=== PATIENT | male | born 2000 | race Caucasian/White ===

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

== ENCOUNTER 2021-07-18 16:29 | Emergency (ER) | payer SELFPAY ==
--- NOTE | 2021-07-18 16:39 | ED.EYEPROB ---
HPI - Eye Problem General Chief complaint: Eye Problems Stated complaint: Eye Swelling/Red Time Seen by Provider: 07/18/21 16:39 Source: patient and RN notes reviewed History of Present Illness HPI Narrative: Patient is a 21-year-old male who presents the urgent care with complaints of right eye redness and irritation. Patient states that started 1 week ago and he has been using [id number] drops without much improvement. Denies of any vision change. Denies of any trauma or injury to the eye. No other acute complaints. No acute distress noted. Patient aware of the plan of care. Some parts of this dictation were generated by voice recognition software and may contain typographical and/or grammatical inaccuracies. Related Data Allergies Allergy/AdvReac Type Severity Reaction Status Date / Time cephalexin AdvReac Intermediate Nausea and Verified 11/18/20 10:34 Vomiting Review of Systems Review of Systems: CONSTITUTIONAL: Denies fever, chills, or sweats. EYES: Reports of redness and irritation to the right eye ENT: Denies rhinorrhea, congestion, sore throat, or otalgia. CARDIOVASCULAR: Denies chest pain, palpitations, or edema. RESPIRATORY: Denies cough or dyspnea. GASTROINTESTINAL: Denies abdominal pain, nausea, vomiting, or diarrhea. GENITOURINARY: Denies dysuria or hematuria. SKIN: Denies rash or itching. MUSCULOSKELETAL: Denies back pain, joint pain, or myalgia. NEUROLOGIC: Denies headache, numbness, or weakness. All other systems reviewed are negative, except as documented in HPI. PMFSH Comments At the time of my signature, I reviewed and agree with the nursing past medical, surgical, social, and family history. There is no relevant family history pertinent to the patient complaint. Exam Narrative: GENERAL: This is a well-nourished, well-developed patient, in no apparent distress. HEAD: normocephalic, atraumatic. EYES: PERRL. left Sclera clear/white. Vision is grossly intact. Moderate injected right conjunctiva with erythemic right sclera EARS: External ears normal, auditory canals clear and without drainage, TMs normal without perforation. Hearing grossly intact. NOSE: External nose normal with no obvious nasal discharge, nares without redness, no rhinorrhea. THROAT: Mucous membranes moist, posterior pharynx clear. NECK: Neck supple, mild right parotid lymphadenopathy CARDIOVASCULAR: Regular rate and rhythm without murmurs, gallops, or rubs. RESPIRATORY: Clear to auscultation. Breath sounds equal bilaterally. No wheezes, rales, or rhonchi. SKIN: warm, intact with no suspicious lesions or rash, good texture and turgor. NEURO: awake, alert, and oriented to person, place and time. There were no obvious focal neurologic abnormalities. EXTREMITIES: No clubbing, cyanosis, or edema. Course Vital Signs Vital signs: Vital Signs Temperature 98.0 F 07/18/21 16:44 Pulse Rate 62 07/18/21 16:44 Respiratory Rate 18 07/18/21 16:44 Blood Pressure 137/97 H 07/18/21 16:44 Pulse Oximetry 100 07/18/21 16:44 Temperature 98.0 F 07/18/21 16:44 Pulse Rate 62 07/18/21 16:44 Respiratory Rate 18 07/18/21 16:44 Blood Pressure 137/97 H 07/18/21 16:44 Pulse Oximetry 100 07/18/21 16:44 Reviewed?patient is informed that they may have pre-hypertension or hypertension based on a blood pressure reading in the department. I recommend the patient call the primary care provider listed on their discharge instructions or a physician of their choice this week to arrange follow-up for further evaluation of possible pre-hypertension or hypertension. MDM - Eye Problem MDM Narrative Medical decision making narrative: Advised the patient to take a daily antihistamine such as Zyrtec/Claritin/Benadryl in conjunction with the eyedrops as directed. Make sure to wipe the applicator tip after each application. Use Tylenol/ibuprofen as needed. Use a warm compress to the right eye for comfort. Follow-up with your PCP/ophthal
[2021-07-18 16:44] VITALS: BP 137/97; PULSE 62; RESP 18; TEMP 36.7; O2SAT 100
== END 2021-07-18 16:55 | disposition home or self-care (01) ==
PROVIDERS: Emergency Provider Nurse Practitioner Family
DX: H10.9 Unspecified conjunctivitis (principal)
CPT/HCPCS: 99213; G0463

== ENCOUNTER 2021-08-16 12:22 | Emergency (ER) | payer SELFPAY ==
[2021-08-16 12:49] VITALS: BP 114/70; PULSE 86; RESP 14; TEMP 37.1; O2SAT 100
--- NOTE | 2021-08-16 14:32 | ED.DENTAL ---
HPI - Dental/Oral General Chief complaint: Dental/Oral Stated complaint: Facial Swelling/Toothache Time Seen by Provider: 08/16/21 14:32 Mode of arrival: ambulatory Limitations: no limitations History of Present Illness MD Complaint: tooth pain Related Data Home Medications Medication Instructions Recorded Confirmed No Home Medications 08/16/21 08/16/21 Allergies Allergy/AdvReac Type Severity Reaction Status Date / Time cephalexin AdvReac Intermediate Nausea and Verified 08/16/21 12:57 Vomiting Review of Systems Review of Systems: CONSTITUTIONAL: Denies malaise, chills, sweats, or fever. EYES: Denies visual changes ENT: Denies rhinorrhea, congestion, sinus pain, otalgia or sore throat. Reports dental pain CARDIOVASCULAR: Denies chest pain, palpitations RESPIRATORY: Denies cough or dyspnea. SKIN: Denies rash or itching. MUSCULOSKELETAL: Denies myalgia. NEUROLOGIC: Denies numbness, weakness, or headache. All systems reviewed & are unremarkable except as noted in HPI and below PMFSH Comments At time of signature, agree with nursing past medical, surgical, social and family history. There is no relevant family history pertinent to the presenting complaint Exam Narrative: GENERAL: Well-appearing, well-nourished, and in no acute distress. HEAD: Normocephalic, atraumatic. EYES: PERRLA, sclera clear ENT: Nares clear, turbinates pink, no rhinorrhea or epistaxis. Mucous membranes moist. TM pearly lopez with sharp light reflex bilaterally; no tragal tenderness. Oropharynx without erythema or lesions. Tonsils not enlarged and without exudate. Missing teeth, broken teeth, caries NECK: Supple. No lymphadenopathy. CHEST: No respiratory distress. Speaks in full sentences. HEART: Regular rate and rhythm. SKIN: Warm, dry, no visible rash. NEURO: Alert and oriented x3. PSYCH: Normal mood and affect Course Course Emergency Course: Patient is aware of diagnosis, understands and agrees to treatment plan. Anticipatory guidance given. Patient agrees to follow-up as directed and is aware of reasons to seek care at the emergency department. Portions of this record may have been created with voice recognition software Vital Signs Vital signs: Vital Signs Temperature 98.8 F 08/16/21 12:49 Pulse Rate 86 08/16/21 12:49 Respiratory Rate 14 08/16/21 12:49 Blood Pressure 114/70 08/16/21 12:49 Pulse Oximetry 100 08/16/21 12:49 Temperature 98.8 F 08/16/21 12:49 Pulse Rate 86 08/16/21 12:49 Respiratory Rate 14 08/16/21 12:49 Blood Pressure 114/70 08/16/21 12:49 Pulse Oximetry 100 08/16/21 12:49 Reviewed. MDM - Dental/Oral MDM Narrative Medical decision making narrative: Patients pain and complaint coupled with physical findings are consistant with dentalgia. There are no focal signs of space occupying lesions that are compromising to the airway; no dysphagia, odynophagia, dysphonia, or dyspnea. No uvular deviation or soft palate edema. Patient is non-toxic appearing. The floor of the mouth is soft with no signs of Dionicio's Angina; no induration below mandible, no neck pain. Patient is without trismus or drooling and able to swallow secretions. Patient is felt appropriate for discharge home with dental follow up. Differential Diagnosis Differential diagnosis: Likely gingival abscess, dental caries, toothache, dental abscess, fracture of tooth and aphthous ulcer Critical Care Time Critical Care Time Critical Care Time: No Discharge Plan Discharge Prescriptions: No Action No Home Medications RF: 0
--- NOTE | 2021-08-16 14:37 | ED.SKABFB ---
HPI - Skin/Abscess/Foreign Bdy General Chief complaint: Wound/Laceration Stated complaint: Facial Swelling/Toothache Time Seen by Provider: 08/16/21 14:32 Source: patient and RN notes reviewed Mode of arrival: ambulatory Limitations: no limitations History of Present Illness HPI narrative: 21-year-old male presents concern for 2 painful nodules on his face, possible dental pain. Reports he thinks the pain started when his wisdom teeth came in. He reports mild dental pain, however reports jaw pain and pain near his ear. Reports it is painful to open his mouth. He denies fever, body aches, sweats, nausea, vomiting. Reports chills. Reports he was seen 2 weeks ago and the areas were smaller and was treated for eye infection. Reports the areas continue to grow larger and more painful. Reports he does not have dental insurance or a dentist. MD complaint: abscess/boil Related Data Allergies Allergy/AdvReac Type Severity Reaction Status Date / Time cephalexin AdvReac Intermediate Nausea and Verified 08/16/21 12:57 Vomiting Review of Systems Review of Systems: CONSTITUTIONAL: Denies malaise, chills, sweats, or fever. EYES: Denies visual changes ENT: Denies rhinorrhea, congestion. Reports right upper and lower posterior jaw pain. Reports pain started after he had his wisdom teeth. CARDIOVASCULAR: Denies chest pain, palpitations, or edema. RESPIRATORY: Denies cough or dyspnea. GASTROINTESTINAL: Denies abdominal pain, nausea, vomiting SKIN: Reports painful bumps on the right side of the face near the jaw MUSCULOSKELETAL: Denies myalgia. NEUROLOGIC: Denies numbness, weakness, or headache. All systems reviewed & are unremarkable except as noted in HPI and below PMFSH Comments At time of signature, agree with nursing past medical, surgical, social and family history. There is no relevant family history pertinent to the presenting complaint Exam Narrative: GENERAL: Well-appearing, well-nourished, and in no acute distress. HEAD: Normocephalic, atraumatic. EYES: PERRLA, conjunctivae clear, and EOMI. ENT: Mucous membranes moist. Oropharynx without edema, erythema or lesions. No caries noted, no missing teeth or broken teeth noted NECK: Supple. No lymphadenopathy CHEST: Clear to auscultation. No respiratory distress. HEART: Regular rate and rhythm. SKIN: Warm, dry. 2 separate fluctuant nodules noted to the right face near the jawline in the ear, approximately 5 cm and 4 cm respectively in diameter NEURO: Alert and oriented x3. PSYCH: Normal mood and affect HENMT: Head images: 1. Large fluctuant nodule 2. Large fluctuant nodule Course Course Emergency Course: Patient is aware of diagnosis, understands and agrees to treatment plan. Anticipatory guidance given. Patient agrees to follow-up as directed and is aware of reasons to seek care at the emergency department. Portions of this record may have been created with voice recognition software Vital Signs Vital signs: Vital Signs Temperature 98.8 F 08/16/21 12:49 Pulse Rate 86 08/16/21 12:49 Respiratory Rate 14 08/16/21 12:49 Blood Pressure 114/70 08/16/21 12:49 Pulse Oximetry 100 08/16/21 12:49 Temperature 98.8 F 08/16/21 12:49 Pulse Rate 86 08/16/21 12:49 Respiratory Rate 14 08/16/21 12:49 Blood Pressure 114/70 08/16/21 12:49 Pulse Oximetry 100 08/16/21 12:49 Reviewed. Procedures Abscess I/D face: Date of Incision: 08/16/21 Time of Incision: 14:40 Side (if applicable): right Local Anesthetic: lidocaine 1% Amount of anesthesia used (mL): 2 Technique: incised with #11 blade Amount of fluid expressed (mL): 5 Irrigation: Yes Packing used?: plain I&D Results: Pus neck: Date of Incision: 08/16/21 Time of Incision: 14:40 Side (if applicable): right Local Anesthetic: lidocaine 1% Amount of anesthesia used (mL): 2 Technique: incised
== END 2021-08-16 15:14 | disposition home or self-care (01) ==
PROVIDERS: Emergency Provider Nurse Practitioner
DX: L02.01 Cutaneous abscess of face (principal)
CPT/HCPCS: 10061; 87070; 87205; 99213; G0463

== ENCOUNTER 2022-10-09 10:55 | Emergency (ER) | payer BC, SELFPAY ==
[2022-10-09 11:02] VITALS: BP 130/82; PULSE 70; RESP 20; TEMP 36.8; O2SAT 100
--- NOTE | 2022-10-09 11:51 | ED.URI ---
HPI - URI/Sore Throat General Chief Complaint: Upper Respiratory Infection Stated Complaint: Shortness of Breath/Not Taste or Smell Time Seen by Provider: 10/09/22 11:15 Source: patient, RN notes reviewed and old records reviewed Mode of arrival: ambulatory Limitations: no limitations History of Present Illness HPI Narrative: 22 year old male who presents to [facility] care with complaints of on Saturday fevers up to 103F which finally broke on Saturday evening, he states that on Saturday he had yellow nasal drainage and cough. Patient reports that on Saturday he lost his sense of taste and smell. Patient reports that he took home COVID test Saturday and Saturday which were both negative. Patient is on day 5 of symptoms told if fever free without use of Tylenol or Ibuprofen he could quit the quarantine aspect but patient is still taking Tylenol and Ibuprofen for his symptoms today. Patient has not received COVID vaccinations. MD elicited complaint: fever, cough, sore throat, rhinorrhea, nasal congestion and other (body aches loss of taste and smell) Onset (ago): day(s) (day 5 of symptoms) Pain scale (0-10): 2 Description of mucous: yellow Able to tolerate fluids by mouth: Yes Treatments prior to arrival: acetaminophen and ibuprofen Related Data Home Medications Medication Instructions Recorded Confirmed No Home Medications 10/09/22 10/09/22 Allergies Allergy/AdvReac Type Severity Reaction Status Date / Time cephalexin AdvReac Intermediate Nausea and Verified 10/09/22 11:19 Vomiting Review of Systems Review of Systems: CONSTITUTIONAL: Reports malaise, chills, sweats, or fever. EYES: Denies visual changes, redness, or discharge. ENT: Reports rhinorrhea, congestion, sinus pain, no otalgisorea positive for sore throat. CARDIOVASCULAR: Denies chest pain, palpitations, or edema. RESPIRATORY: Reports cough.? Denies acute dyspnea. GASTROINTESTINAL: Denies abdominal pain, nausea, vomiting, diarrhea SKIN: Denies rash or itching. MUSCULOSKELETAL:Reports myalgia. NEUROLOGIC: Reports headache. All systems reviewed & are unremarkable except as noted in HPI and below PMFSH Past Medical History Medical History (Updated 10/10/22 @ 09:49 by Sherie Duran NP) ADD (attention deficit disorder) History of dental problems IBS (irritable bowel syndrome) Surgical History Surgical History (Updated 10/10/22 @ 09:46 by Sherie Duran NP) H/O sinus surgery History of placement of ear tubes History of tonsillectomy and adenoidectomy Comments At time of signature, agree with nursing past medical, surgical, social and family history. There is no relevant family history pertinent to the presenting complaint Exam Narrative: GENERAL: Well-appearing, well-nourished, and in no acute distress. HEAD: Normocephalic EYES: PERRLA, conjunctivae clear ENT: Nares clear, turbinates edematous and erythematous, yellow discharge. Mucous membranes moist. TM pearly lopez with dull light reflex bilaterally; no tragal tenderness. Oropharynx erythematous without lesions. Tonsils not present throat red and without exudate, no drooling, no hoarseness, no trismus, uvula midline. NECK: Supple. No lymphadenopathy CHEST: Clear to auscultation, breath sounds equal. No wheezing, rhonchi, rales, or stridor. No respiratory distress, speaks in full sentences.cough noted no tachypnea, SAO2 100% on room air HEART: Regular rate and rhythm. No murmur heard. SKIN: Warm, dry, no rash. NEURO: Alert and oriented x3. PSYCH: Normal mood and affect Course Course Emergency Course: Patient is aware of diagnosis, understands and agrees to treatment plan.? Anticipatory guidance given.? Patient agrees to follow-up as directed and is aware of reasons to seek care at the emergency department. Portions of this record may have been created with voice recognition software Level of Care: Express Care Visit Vital Signs Vital signs: Vital Signs
== END 2022-10-09 12:02 | disposition home or self-care (01) ==
PROVIDERS: Emergency Provider Registered Nurse
DX: U07.1 COVID-19 (principal)
CPT/HCPCS: 87081; 87426; 87804; 87880; 99213; C9803; G0463

== ENCOUNTER 2024-07-21 08:55 | Emergency (ER) | payer SELFPAY ==
[2024-07-21 09:00] VITALS: BP 138/85; PULSE 81; RESP 16; TEMP 37.2; O2SAT 99
--- NOTE | 2024-07-21 09:22 | ED.GENADULT ---
HPI - General Adult General Chief complaint: Skin/Abscess/Foreign Body Stated complaint: rash on legs/swollen Source: patient Mode of arrival: ambulatory Limitations: no limitations History of Present Illness HPI narrative: Patient presents for evaluation of a pruritic rash to the bilateral lower extremities. Symptom onset 5 days ago. No new lotions, soaps, detergents, topical products. He has taken Benadryl by mouth, applied Benadryl cream and another unknown topical product without improvement in his symptoms. He denies difficulty breathing or swallowing. No history of similar symptoms in the past. Related Data Allergies Allergy/AdvReac Type Severity Reaction Status Date / Time cephalexin AdvReac Intermediate Nausea and Verified 10/09/22 11:19 Vomiting Review of Systems Review of Systems: CONSTITUTIONAL: Denies fever, chills, or sweats. EYES: Denies visual changes, redness, or discharge. ENT: Denies rhinorrhea, congestion, sore throat, or otalgia. CARDIOVASCULAR: Denies chest pain, palpitations, or edema. RESPIRATORY: Denies cough or dyspnea. GASTROINTESTINAL: Denies abdominal pain, nausea, vomiting, or diarrhea. GENITOURINARY: Denies dysuria or hematuria. SKIN: Reports pruritic rash to lower extremities bilaterally MUSCULOSKELETAL: Denies back pain, joint pain, or myalgia. NEUROLOGIC: Denies headache, numbness, dizziness, or weakness. PSYCHIATRIC: Denies anxiety or depression. PMFSH Past Medical History Medical History ADD (attention deficit disorder) History of dental problems IBS (irritable bowel syndrome) Surgical History Surgical History H/O sinus surgery History of placement of ear tubes History of tonsillectomy and adenoidectomy Family History Family History Mother Family history non-contributory Social History Social History Alcohol intake: never Substance use: never Gender identity (if verbalized by the patient): Male Exam Narrative: GENERAL: Well-appearing, well-nourished, and in no acute distress. HEAD: Normocephalic, atraumatic. EYES: PERRLA and EOMI. ENT: Nares clear, no rhinorrhea or epistaxis. Mucous membranes moist. Oropharynx without tonsillar hypertrophy exudate or other lesions. Bilateral TMs pearly lopez nonbulging NECK: Supple. No adenopathy or masses. No carotid bruits or JVD CHEST: Clear to auscultation. No respiratory distress. No wheezes rales or rhonchi HEART: Regular rate and rhythm. No murmur heard. Normal peripheral pulses. ABDOMEN: Soft, nontender, nondistended, normal active bowel sounds. EXTREMITIES: Normal range of motion. No edema. SKIN: There is a slightly raised erythematous sandpaper-like rash to inner aspects of bilateral thighs and bilateral lower legs NEURO: No focal deficits. Alert and oriented x3. PSYCH: Normal mood and affect. Course Course Emergency Course: This is a 24-year-old male who presented for evaluation of a pruritic rash to bilateral lower extremities. Etiology unclear. Topical products offered improvement. He may continue to take oral benadryl. Will dc with prednisone. Increase hydration. Follow up with primary provider. Go to the ER for worsening symptoms. Pt in agreement with plan of care. Level of Care: Express Care Visit Vital Signs Vital signs: Vital Signs Temperature 37.2 C 07/21/24 09:00 Pulse Rate 81 07/21/24 09:00 Respiratory Rate 16 07/21/24 09:00 Blood Pressure 138/85 07/21/24 09:00 Pulse Oximetry 99 07/21/24 09:00 Oxygen Delivery Room Air 07/21/24 09:00 Temperature 37.2 C 07/21/24 09:00 Pulse Rate 81 07/21/24 09:00 Respiratory Rate 16 07/21/24 09:00 Blood Pressure 138/85 07/21/24 09:00 Pulse Oximetry 99 07/21/24 09:00 Oxygen Delivery Room Air 07/21/24 09:00 Medical Decision Making Vital Signs Vital Signs: Vital Signs Temperature 37.2 C 07/21/24 09:00 Pulse Rate 81 07/21/24 09:00 Respiratory Rate 16 07/21/24 09:00 Blood Pressure 138/85 07/21/24 09:00 Pulse Oximetry 99 07/21/24 09:00 Oxygen Delivery Room Air 07/21/24 09:00 Temperature 37.2 C 07/21/24 09:00 Pulse Rate 81 07/21/24 09:00 Respiratory Rate 16 07/21/24 09:00 Blood Pressure 138/85 07/21/24 09:00 Pulse Oximetry 99 07/21/24 09:00 Oxygen Delivery Room Air 07/21/24 09:00 Discharge Plan Discharge Clinical Impression: Dermatitis Patient Disposition: Home, Self-Care Condition: Stable Instructions: Antibiotic Form, Dermatitis (ED) Patient Language: [place] Prescriptions: New prednisone 50 mg tablet 50 mg PO DAILY Qty: 5 0RF Follow-up/Referrals: Alexsandra,JENNIFER Lombardo [Primary Care Provider] - Time of Disposition: 09:18
== END 2024-07-21 09:22 | disposition home or self-care (01) ==
PROVIDERS: Emergency Provider Nurse Practitioner; PCP Physician Assistant
DX: L30.9 Dermatitis, unspecified (principal)
CPT/HCPCS: 99213; G0463

== ENCOUNTER 2025-02-22 12:55 | Emergency (ER) | payer SELFPAY ==
[2025-02-22 13:00] VITALS: BP 129/82; PULSE 76; RESP 20; TEMP 36.8; O2SAT 100
--- NOTE | 2025-02-22 13:00 | ED_ITS ---
HPI - Abdominal Pain General Chief Complaint: Nausea/Vomiting/Diarrhea Stated Complaint: Headache/Abdominal Pain/Weakness in Legs Time Seen by Provider: 02/22/25 13:03 Source: patient, RN notes reviewed and old records reviewed Mode of arrival: ambulatory Limitations: no limitations History of Present Illness HPI narrative: 24 year male presents to the [facility] with concerns that yesterday he had diarrhea when he got off work last night. Did have abdominal pain last night, headache. States symptoms have improved. Went to work this morning and states that his legs just feel like Jell-O. No treatment prior to arrival. Able to eat and drink. Onset (ago): hour(s) Related Data Allergies Allergy/AdvReac Type Severity Reaction Status Date / Time cephalexin AdvReac Intermediate Nausea and Verified 10/09/22 11:19 Vomiting Review of Systems Review of Systems: All systems reviewed & are unremarkable except as noted in HPI and below Constitutional: Constitutional: Reports as per HPI ENT: Reports system reviewed and no additional complaints, except as documented Cardiovascular: Cardiovascular: Reports no additional cardiovascular complaints, Denies chest pain and Denies dyspnea Respiratory: Respiratory: Reports no additional respiratory complaints, Denies chest congestion, Denies cough and Denies dyspnea Gastrointestinal: Gastrointestinal: Reports as per HPI Musculoskeletal: Musculoskeletal: Reports as per HPI Integumentary/Breasts: Skin/Breast: Reports system reviewed and no additional complaints, except as docu PMFSH Past Medical History Medical History ADD (attention deficit disorder) History of dental problems IBS (irritable bowel syndrome) Surgical History Surgical History History of tonsillectomy and adenoidectomy H/O sinus surgery History of placement of ear tubes Family History Family History Mother Family history non-contributory Social History Social History Alcohol intake: never Substance use: never Gender identity (if verbalized by the patient): Male Comments At the time of my signature, I reviewed and agree with the nursing past medical, surgical, social, and family history. There is no relevant family history pertinent to the patient complaint. Exam Const: General: cooperative, healthy appearing, comfortable, no acute distress, well developed, alert and well nourished Nutritional Appearance: well nourished Orientation/consciousness: patient oriented x3 Limitations: no limitations HENMT: Head: normal to inspection Mouth: Yes Normal oral and palatal mucosa present, Yes lip normal, Yes tongue normal and Yes moist mucous membranes Eyes: General: appearance normal, both eyes and all related structures Alignment and Position: alignment normal Neck: Neck: normal visual inspection, full ROM, no lymphadenopathy and no meningeal signs Chest: Chest palpation & inspection: normal inspection of the chest Resp: Effort & Inspection: normal respiratory effort and able to speak in complete sentences Auscultation: clear to auscultation bilaterally, no crackles, no rales, no rhonchi and no wheezes Cardio: Rate: regular rate GI: GI Palp: No abdominal tenderness Auscultation: normal bowel sounds Skin: General skin exam: normal color and no rashes or lesions noted Neuro: General: patient oriented x3, gait normal, moves all extremities and no meningeal signs Cognition (Neuro): normal cognition Speech: normal speech Gait exam (Neuro): Normal gait present Extrem: General: normal to inspection, full ROM, capillary refill normal and normal gait Psych: Appearance: grossly normal and well kempt Mental Status: mental status grossly normal Speech and movement: Normal speech and movement present and Clear speech present Affect: normal affect Attitude: cooperative Course Course Level of Care: Express Care Visit Vital Signs Vital signs: Vital Signs Temperature 98.2 F 02/22/25 13:00 Pulse Rate 76 02/22/25 13:00 Respiratory Rate 20 02/22/25 13:00 Blood Pressure 129/82 02/22/25 13:00 Pulse Oximetry 100 02/22/25 13:00 Oxygen Delivery Room Air 02/22/25 13:00 Temperature 98.2 F 02/22/25 13:00 Pulse Rate 76 02/22/25 13:00 Respiratory Rate 20 02/22/25 13:00 Blood Pressure 129/82 02/22/25 13:00 Pulse Oximetry 100 02/22/25 13:00 Oxygen Delivery Room Air 02/22/25 13:00 Reviewed MDM - Abdominal Pain MDM Narrative Medical decision making narrative: Patient sitting in nontoxic exam room. Patient vitals are stable. Patient presents with concerns of diarrhea last night, headache and abdominal pain, improved today. States he has had some weakness in his legs. Discussed concerns for electrolyte disturbances, he related injury. offered to send him to the ER. Through joint decision making patient is declining transfer at this time. Would prefer to try oral hydration, resting at home as well as Tylenol. Discussed in great detail signs and symptoms proceed to the emergency room which he verbalized understanding. Requesting a work note. Discharge instructions reviewed with patient, as well as provided in writing per nursing staff. The instructions also include specific and strict return/GO TO THE ER as well as f/u information. All questions have been answered, and the patient deny any further questions with discharge and discharge plan. Some parts of this dictation were generated by voice recognition software and may contain typographical and/or grammatical inaccuracies. Differential Diagnosis Differential diagnosis: Likely abdominal pain, gastroenteritis and other (Electrolyte,) Critical Care Time Critical Care Time Critical Care Time: No Discharge Plan Discharge Clinical Impression: Diarrhea Qualifiers: Diarrhea type: unspecified type Qualified Code(s): R19.7 - Diarrhea, unspecified Fatigue Qualifiers: Fatigue type: unspecified Qualified Code(s): R53.83 - Other fatigue Patient Disposition: Home Condition: Stable Instructions: Dehydration (ED), Acute Diarrhea (ED) Additional Instructions: hydrate with water, Gatorade, Pedialyte. Rest in a cool area if the abdominal pain returns, concern for dehydration, weakness please go directly to the nearest emergency room Patient Language: Kiswahili Follow-up/Referrals: PHYSICIAN,WORKER'S COMPENSATION CLAIMS EXAMINER [Primary Care Provider] - Stand Alone Forms: Work/School Release IP Time of Disposition: 13:11
--- OUTSIDE RECORDS SUMMARY | 2025-02-22 13:00 | XMS_ITS | Clinical Summary ---
Author Organization [facility] Address [address] [place] [address] Care Team Providers Care Water Filterer Name Role Phone Unavailable Primary Care Provider Unavailabl e Source Comments [facility],non-owned Affiliates and Associated Physician Practices is amultiple site organization consisting of ambulatory clinics and hospital sitesin [place], [place], [place] and [place]. This disclosure is being madepursuant to the Care Everywhere program and may not contain all information available regarding this patient. Last updated 18.[facility] Allergies Active Allergy Reactions Criticality Noted Date Comments Cephalexin Rash Medium 06/20/2018 Medications * Be aware that medications may not be up to date on this document. Alwaysverify current medications with the patient. 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 Gender Identity Not on file Sexual Orientation Not on file Last Filed Vital Signs Vital Sign Reading Time Taken Comments Blood Pressure 110/68 06/20/2018 10:19 AM CDT Pulse 56 06/20/2018 10:16 AM CDT Temperature 36.8 C (98.3 F) 06/20/2018 10:16 AM CDT Respiratory Rate 14 06/20/2018 10:16 AM CDT Oxygen Saturation 98% 06/20/2018 10:16 AM CDT Inhaled Oxygen Concentration - - Weight 73.5 kg (162 lb) 06/20/2018 10:16 AM CDT Height 180.3 cm (5' 11) 06/20/2018 10:16 AM CDT Body Mass Index 22.59 06/20/2018 10:16 AM CDT Plan of Treatment Health Maintenance Due Date Last Done Comments HIV SCREENING 2016 HPV VACCINE (1 - Male 3-dose series) 2016 MENINGOCOCCAL (Group B) VACC INE SHARED DECISION-MAKING (1 of 2 - Standard) 2017 HEPATITIS C SCREENING 04/16/2019 DTAP/TDAP/TD VACCINES (1 - Tdap) 2020 HEPATITIS B VACCINE (1 of 3 - 19+ 3-dose series) 2020 COVID-19 VACCINE (1 - 2023-2 5 season) 2024 DEPRESSION SCREENING 08/19/2024 INFLUENZA VACCINE (Season Ended) 2025 ZOSTER VACCINE (1 of 2) 2051 HIB VACCINE Aged Out No longer eligi ble based on patient's age to complete this topic MENINGOCOCCAL GROUPS A/C/Y/W VACCINE Aged Out No longer eligible b ased on patient's age to complete this topic PNEUMOCOCCAL VACCINE Aged Out No long er eligible based on patient's age to complete this topic
--- OUTSIDE RECORDS SUMMARY | 2025-02-22 13:00 | XMS_ITS | Clinical Summary ---
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 Gender Identity Not on file Sexual Orientation Not on file Plan of Treatment Health Maintenance Due Date Last Done Comments Hepatitis C Virus (HCV) Screening 2001 TdaP Immunization 2001 Human Papillomavirus (HPV) Immunization (1 - Male 3-dose series) 2016 Meningococcal B Immunization (1 of 2 - Standard) 2017 Hepatitis B Immunization (1 of 3 - 19+ 3-dose series) 2020 Influenza Immunization (#1) 2024 SARS-COV-2 Immunization ( season) 2024 Respiratory Syncytial Virus (RSV) Immunization (Adult) (1 - 1-dose 75+ series) 2076 Meningococcal Immunization (ACWY) Aged Out No longer eligible based on patient's age to complete this topic Pneumococcal Immunization Combined Aged Out No longer eligible based on patient's age to complete this topic Rotavirus Immunization Aged Out No lo nger eligible based on patient's age to complete this topic
== END 2025-02-22 13:15 | disposition home or self-care (01) ==
PROVIDERS: Emergency Provider Nurse Practitioner
DX: R19.7 Diarrhea, unspecified (principal); R53.83 Other fatigue
CPT/HCPCS: 99211; G0463